=== PATIENT | female | born 1955 | race Two or more races ===

== ENCOUNTER 2024-04-29 12:08 | Emergency (ER) | payer OTHER ==
[2024-04-29 12:42] VITALS: BP 119/68; PULSE 77; RESP 18; TEMP 98.2; BMI 29.0
[2024-04-29] MEDS ORDERED: KETOROLAC TROMETHAMINE 30 MG/1 ML VIAL ONE (13:57)
[2024-04-29] MEDS: KETOROLAC TROMETHAMINE 30 MG/1 ML VIAL IM ONE (13:59)
== END 2024-04-29 15:43 | disposition home or self-care (01) ==
LOC: JERFT 12:08
PROC: 3E0233Z Introduction of Anti-inflammatory into Muscle, Percutaneous Approach (ICD-10-PCS; principal; 2024-04-29)
DX: M54.42 Lumbago with sciatica, left side (principal); G89.29 Other chronic pain
CPT/HCPCS: 72100-TC-FY; 73502-TC-LT-FY; 96372; 99284-25

== ENCOUNTER 2024-07-25 12:55 | Observation (INO) | payer OTHER ==
[2024-07-25 13:11] VITALS: BMI 29.8
[2024-07-25] MEDS ORDERED: ACETAMINOPHEN INJECTION 100 ML ONE (14:06)
[2024-07-25 14:11] LABS: BASO % 0.5 % (0-2.0); EOS % 4.1 % (0-4.5); HEMATOCRIT 41.4 % (32.4-45.2); HEMOGLOBIN 13.9 GM/dL (10.7-15.3); LYMPH % 21.6 % (8-40); MCH 30.4 pg (25.7-33.7); MCHC 33.6 g/dl (32.0-36.0); MEAN CELL VOLUME 90.5 fl (80-96); MEAN PLT VOLUME 8.5 fl (7.5-11.1); MONO % 7.4 % (3.8-10.2); NEUT % 66.4 % (42.8-82.8); PLATELET COUNT 217 10^3/uL (134-434); RBC 4.58 M/mm3 (3.60-5.2); WHITE BLOOD COUNT 5.4 K/mm3 (4.0-10.0)
[2024-07-25] MEDS: ACETAMINOPHEN 1000 MG/100 ML BAG IVPB ONE (14:12)
[2024-07-25 14:26] LABS: POTASSIUM 5.5 mmol/L (3.5-5.1)
[2024-07-25 14:28] LABS: ALBUMIN 3.8 g/dl (3.4-5.0); BLOOD UREA NITROGEN 16.5 mg/dL (7-18); CALCIUM 9.6 mg/dL (8.5-10.1)
[2024-07-25 14:31] LABS: CREATININE 0.6 mg/dL (0.55-1.3)
[2024-07-25 14:33] LABS: BILIRUBIN,TOTAL 0.6 mg/dL (0.2-1); TOT PROT 7.4 g/dl (6.4-8.2)
[2024-07-25] MEDS ORDERED: KETOROLAC TROMETHAMINE 30 MG/1 ML VIAL ONE (14:50)
[2024-07-25] MEDS: KETOROLAC TROMETHAMINE 30 MG/1 ML VIAL IVPUSH ONE (15:03)
[2024-07-25 15:23] LABS: HIV INTERPRETATION NEGATIVE (NEGATIVE)
[2024-07-25] MEDS ORDERED: CLINDAMYCIN 600MG PREMIX IVPB 600 MG/50 ML BAG IVPB ONE (15:27)
[2024-07-25] MEDS: SODIUM CHLORIDE 1,000 ML IV STA (15:39)
[2024-07-25] MEDS: CLINDAMYCIN 600MG PREMIX IVPB 600 MG/50 ML BAG IVPB ONE (15:39)
[2024-07-25] MEDS ORDERED: ACETAMINOPHEN 500 MG TABLET (FP) PO PRN (17:45)
[2024-07-25] MEDS: PIPERACILLIN/TAZOB 3.375 GM 50 ML IVPB SCH (20:16)
[2024-07-25] MEDS ORDERED: INSULIN ASPART SLIDING SCALE (NOVOLOG) 1 VIAL SQ ONE (22:47)
[2024-07-25] MEDS: INSULIN (NOVOLOG) ASPART 100 UNITS/ML 10ML VIAL SQ SCH (22:56)
[2024-07-25] MEDS: HEPARIN NA (PORCINE) 5,000 UNITS/ML 1ML VIAL SQ SCH (22:59)
[2024-07-26 06:16] LABS: URINE APPEARANCE CLEAR; URINE BILIRUBIN NEGATIVE (NEGATIVE); URINE COLOR YELLOW; URINE GLUCOSE (UA) 3+ (NEGATIVE); URINE KETONE NEGATIVE (NEGATIVE); URINE LEUK ESTERASE NEGATIVE (NEGATIVE); URINE NITRITE NEGATIVE (NEGATIVE); URINE PROTEIN NEGATIVE (NEGATIVE)
[2024-07-26 06:54] VITALS: TEMP 97.7
[2024-07-26 07:47] LABS: HEMATOCRIT 37.4 % (32.4-45.2); HEMOGLOBIN 12.5 GM/dL (10.7-15.3); MCH 30.4 pg (25.7-33.7); MCHC 33.5 g/dl (32.0-36.0); MEAN CELL VOLUME 90.6 fl (80-96); MEAN PLT VOLUME 8.8 fl (7.5-11.1); PLATELET COUNT 217 10^3/uL (134-434); RBC 4.13 M/mm3 (3.60-5.2); RDW 14.8 % (11.6-15.6); WHITE BLOOD COUNT 4.8 K/mm3 (4.0-10.0)
[2024-07-26 09:15] LABS: ANISOCYTOSIS 0; HELMET CELLS 0; HOWELL-JOLLY BODIES 0; MACROCYTOSIS 0; OVALOCYTE 0; ROULEAU 0; SICKELED CELLS 0; TARGET CELLS 0; TEAR DROP CELLS 0; TOXIC GRANULATION 0
[2024-07-26 12:08] VITALS: RESP 18
[2024-07-26 13:08] VITALS: BP 114/75; PULSE 80
== END 2024-07-26 13:15 | disposition home or self-care (01) ==
LOC: JER 12:55 → JERBED 15:45 → J7W 17:25
PROVIDERS: ADMIT Internal Medicine; ATTEND Internal Medicine
PROC: 3E033NZ Introduction of Analgesics, Hypnotics, Sedatives into Peripheral Vein, Percutaneous Approach (ICD-10-PCS; principal; 2024-07-25)
PROC: 3E03329 Introduction of Other Anti-infective into Peripheral Vein, Percutaneous Approach (ICD-10-PCS; 2024-07-25)
PROC: 3E033GC Introduction of Other Therapeutic Substance into Peripheral Vein, Percutaneous Approach (ICD-10-PCS; 2024-07-25)
PROC: 3E023GC Introduction of Other Therapeutic Substance into Muscle, Percutaneous Approach (ICD-10-PCS; 2024-07-25)
PROC: 3E0333Z Introduction of Anti-inflammatory into Peripheral Vein, Percutaneous Approach (ICD-10-PCS; 2024-07-25)
PROC: 3E0337Z Introduction of Electrolytic and Water Balance Substance into Peripheral Vein, Percutaneous Approach (ICD-10-PCS; 2024-07-25)
DX: M54.50 Low back pain, unspecified (principal); R39.15 Urgency of urination; E11.9 Type 2 diabetes mellitus without complications; I10 Essential (primary) hypertension; I87.2 Venous insufficiency (chronic) (peripheral); L03.116 Cellulitis of left lower limb; L03.115 Cellulitis of right lower limb
CPT/HCPCS: 36415; 76775-TC; 80053; 81003; 82962; 83605; 85025; 85027; 86803; 87040; 87389; 93005; 93010; 93970-TC; 96361; 96365; 96366; 96372; 96375; 99285-25; G0378; J0131; J1644

== ENCOUNTER 2024-12-24 10:20 | Emergency (ER) | payer OTHER ==
[2024-12-24 10:27] VITALS: BMI 29.8
[2024-12-24] MEDS ORDERED: ONDANSETRON 4 MG/2 ML VIAL ONE (11:49)
[2024-12-24 11:54] LABS: ABSOLUTE IMMATURE GRANULOCYTES 0.01 x10^3/uL (0.0-0.031); BASOPHILS # 0.02 x10^3/uL (0.01-0.08); EOSINOPHIL % 1.5 % (0.7-5.8); EOSINOPHILS # 0.11 x10^3/uL (0.04-0.36); HEMATOCRIT 42.7 % (34.1-44.9); MCHC 32.8 g/dl (32.2-35.5); MEAN CELL VOLUME 90.1 fl (79.4-94.8); MEAN PLT VOLUME 10.8 fl (9.4-12.3); MONOCYTE # 0.43 x10^3/uL (0.24-0.86); MONOCYTE % 5.7 % (4.7-12.5); PLATELET COUNT 252 x10^3/uL (182-369); RDW 13.6 % (12.4-16.4)
[2024-12-24 11:55] LABS: PH,URINE 6.5 (5.0-8.0); URINE APPEARANCE CLEAR; URINE BILIRUBIN NEGATIVE (NEGATIVE); URINE COLOR YELLOW; URINE GLUCOSE (UA) 2+ (NEGATIVE); URINE KETONE NEGATIVE (NEGATIVE); URINE LEUK ESTERASE NEGATIVE (NEGATIVE); URINE NITRITE NEGATIVE (NEGATIVE); URINE PROTEIN NEGATIVE (NEGATIVE); URINE UROBILINOGEN 0.2 mg/dL (0.2-1.0)
[2024-12-24] MEDS: ONDANSETRON 4 MG/2 ML VIAL IVPUSH ONE (12:01)
[2024-12-24] MEDS: LACTATED RINGERS SOLUTION 1000 ML INFUS.BAG IV ONE (12:01)
[2024-12-24 12:20] LABS: POTASSIUM 4.1 mmol/L (3.5-5.1)
[2024-12-24 12:23] LABS: CALCIUM 9.8 mg/dL (8.5-10.1)
[2024-12-24 12:24] LABS: BLOOD UREA NITROGEN 18.6 mg/dL (7-18); MAGNESIUM 1.9 mg/dL (1.8-2.4)
[2024-12-24 12:27] LABS: CREATININE 0.6 mg/dL (0.55-1.3)
[2024-12-24 12:28] LABS: BILIRUBIN,TOTAL 0.7 mg/dL (0.2-1); TOT PROT 7.5 g/dl (6.4-8.2)
[2024-12-24 13:40] LABS: HIV INTERPRETATION NEGATIVE (NEGATIVE)
[2024-12-24 13:43] LABS: HCV DIAGNOSTIC IN-HOUSE W/RFLX NON-REACTIVE (NONREACTIVE)
[2024-12-24 15:42] VITALS: BP 125/71; PULSE 73; RESP 20; TEMP 98
== END 2024-12-24 16:03 | disposition home or self-care (01) ==
LOC: JER 10:20
PROC: 3E033GC Introduction of Other Therapeutic Substance into Peripheral Vein, Percutaneous Approach (ICD-10-PCS; principal; 2024-12-24)
DX: K52.9 Noninfective gastroenteritis and colitis, unspecified (principal); R10.31 Right lower quadrant pain; R11.0 Nausea
CPT/HCPCS: 36415; 74177-TC; 80053; 81003; 82962; 83605; 83690; 83735; 85025; 86803; 87086; 87389; 96374; 99285-25; Q9967